=== PATIENT | male | born 1945 | race Caucasian/White ===

== ENCOUNTER → 2017-03-05 | Outpatient (CLI) | payer MEDICARE, OTHER | END | disposition home or self-care (01) | LOC: CDC 09:32 | DX: Z01.810 Encounter for preprocedural cardiovascular examination (principal); I48.91 Unspecified atrial fibrillation; I45.10 Unspecified right bundle-branch block; I44.4 Left anterior fascicular block | CPT/HCPCS: 93000 ==

== ENCOUNTER 2018-02-01 09:55 | Day surgery (SDC) | payer OTHER, BC ==
[~2018-02-01] VITALS: Ht 182.9 cm; Wt 86.0 kg
[~2018-02-01 09:55] MED LIST: CYANOCOBALAM1000 MCG PO; DIGOXIN250 MCG PO; ERGOCALCIF50000 UNIT PO; IRON325 M1 PO; METOPROLOL TART50 MG PO; MULTIVITAMIN1 EAC2 PO; OMEPRAZOLE40 M1 PO; PRADAXA150 MG PO
[2018-02-01] MEDS ORDERED: ASPIRIN81 M2 PO (10:23)
[2018-02-01] MEDS ORDERED: PRADAXA150 MG PO (10:23)
== END 2018-02-01 17:10 | disposition home or self-care (01) ==
LOC: CATH 09:55
DX: I25.10 Atherosclerotic heart disease of native coronary artery without angina pectoris (principal); I25.84 Coronary atherosclerosis due to calcified coronary lesion; I34.0 Nonrheumatic mitral (valve) insufficiency; I35.1 Nonrheumatic aortic (valve) insufficiency; I48.1 Persistent atrial fibrillation; Z79.01 Long term (current) use of anticoagulants; I45.10 Unspecified right bundle-branch block; N18.2 Chronic kidney disease, stage 2 (mild); Z98.84 Bariatric surgery status; Z68.27 Body mass index [BMI] 27.0-27.9, adult
CPT/HCPCS: 93005; C1769; C1887; J1644; J2250; J3010; J7040